=== PATIENT | male | born 1945 | race Asian ===

== ENCOUNTER 2022-10-01 21:28 | Emergency (ER) | payer OTHER ==
[~2022-10-01] VITALS: Ht 190.5 cm; Wt 56.7 kg
[2022-10-01 22:34] LABS: PLATELET COUNT 221 K/uL (142-355); POTASSIUM 4.1 mmol/L (3.6-5.2)
[2022-10-02] VITALS: BP 142/73; TEMP 97.6
[2022-10-02] MEDS ORDERED: ASPIRIN 81 LOW81 MG PO (09:34)
[2022-10-02] MEDS ORDERED: KP FOLIC ACID1 MG PO (09:34)
[2022-10-02] MEDS ORDERED: MELATONIN MAXIMU5 MG PO (09:36)
[2022-10-02] MEDS ORDERED: MEMA5TAB PO (09:38)
[2022-10-02] MEDS ORDERED: NICODERM C14 MG/241 TD (09:40)
[2022-10-02] MEDS ORDERED: OLANZAPINE2.5 MG PO (09:42)
[2022-10-02] MEDS ORDERED: SPIRIVA RE2.5 MCG/AC INH (09:44)
[2022-10-02] MEDS ORDERED: TAB-A-VIT1 PO (09:47)
[2022-10-02] MEDS ORDERED: TAMS0.4C PO (09:50)
[2022-10-02] MEDS ORDERED: B-1100 MG PO (09:54)
[2022-10-02] MEDS ORDERED: ADVAIR HF2 INH (09:56)
[2022-10-02] MEDS ORDERED: DIVA250T2 PO (09:58)
[2022-10-02] MEDS ORDERED: DORZSOL OPTH (10:01)
[2022-10-02] MEDS ORDERED: LORA0.5T17 PO ×2 (10:03→10:06)
[2022-10-02] MEDS ORDERED: BOOST PLUS PO (10:10)
[2022-10-02] MEDS ORDERED: GRALISE600 MG PO (10:12)
[2022-10-02] MEDS ORDERED: IPRATROPIUM/ INH (10:14)
== END 2022-10-02 | disposition still patient (30) ==
LOC: ED 21:28
PROVIDERS: Emergency Medicine
DX: R46.89 Other symptoms and signs involving appearance and behavior (principal); N39.0 Urinary tract infection, site not specified; Z11.52 Encounter for screening for COVID-19; Z04.6 Encounter for general psychiatric examination, requested by authority
CPT/HCPCS: 36415; 80053; 81000; 85027; 87077; 87086; 87088; 87186; 87635; 93005; 99283; U0003

== ENCOUNTER 2022-10-08 21:50 | Emergency (ER) | payer OTHER ==
[~2022-10-08] VITALS: Ht 193 cm; Wt 57.2 kg
[2022-10-08 21:50] VITALS: TEMP 98.1
[~2022-10-08 21:50] MED LIST: ADVAIR HF2 INH; ASPIRIN 81 LOW81 MG PO; B-1100 MG PO; BOOST PLUS PO; DIVA250T2 PO; DORZSOL OPTH; GRALISE600 MG PO; IPRATROPIUM/ INH; KP FOLIC ACID1 MG PO; LORA0.5T17 PO; MELATONIN MAXIMU5 MG PO; MEMA5TAB PO; NICODERM C14 MG/241 TD; OLANZAPINE2.5 MG PO; SPIRIVA RE2.5 MCG/AC INH; TAB-A-VIT1 PO; TAMS0.4C PO
[2022-10-08 22:37] LABS: PLATELET COUNT 160 K/uL (142-355)
[2022-10-08 22:48] LABS: POTASSIUM 6.1 mmol/L (3.6-5.2)
[2022-10-08 23:56] VITALS: BP 102/63
== END 2022-10-09 | disposition still patient (30) ==
LOC: ED 21:50
PROVIDERS: Emergency Medicine
DX: E87.5 Hyperkalemia (principal); E86.0 Dehydration; W01.198A Fall on same level from slipping, tripping and stumbling with subsequent striking against other object, initial encounter; Y92.238 Other place in hospital as the place of occurrence of the external cause
CPT/HCPCS: 36415; 80048; 85027; 96360; 99284

== ENCOUNTER 2022-10-10 12:41 | Emergency (ER) | payer OTHER ==
[~2022-10-10] VITALS: Ht 193 cm; Wt 57.2 kg
[2022-10-10 12:41] VITALS: TEMP 96.3
[2022-10-10 14:17] LABS: PLATELET COUNT 152 K/uL (142-355)
[2022-10-10 14:26] LABS: POTASSIUM 5.7 mmol/L (3.6-5.2)
[2022-10-10 14:37] LABS: PARTIAL THROMBOPLASTIN TIME 27.6 SECONDS (24.5-33.6)
[2022-10-10 17:30] VITALS: BP 113/55
== END 2022-10-10 20:40 ==
LOC: ED 12:41
PROVIDERS: Emergency Medicine
PROC: 0T9B70Z Drainage of Bladder with Drainage Device, Via Natural or Artificial Opening (ICD-10-PCS; principal; 2022-10-10)
PROC: 5A1221J Performance of Cardiac Output, Continuous, Automated (ICD-10-PCS; 2022-10-10)
PROC: 0BH17EZ Insertion of Endotracheal Airway into Trachea, Via Natural or Artificial Opening (ICD-10-PCS; 2022-10-10)
PROC: 0D9670Z Drainage of Stomach with Drainage Device, Via Natural or Artificial Opening (ICD-10-PCS; 2022-10-10)
DX: I46.9 Cardiac arrest, cause unspecified (principal); J44.9 Chronic obstructive pulmonary disease, unspecified; R09.02 Hypoxemia; I62.00 Nontraumatic subdural hemorrhage, unspecified; F03.90 Unspecified dementia, unspecified severity, without behavioral disturbance, psychotic disturbance, mood disturbance, and anxiety; Z20.822 Contact with and (suspected) exposure to COVID-19
CPT/HCPCS: 36600; 51702; 80053; 82805; 83880; 84484; 85027; 85379; 85610; 85730; 87635; 92950; 93005; 94660; 96360; 96361; 96374; 96375; 96376; 99285; J0171; Q9963; U0003